=== PATIENT | male | born 1980 | race Caucasian/White ===

== ENCOUNTER 2019-12-22 18:10 | Emergency (ER) | payer SELFPAY ==
[2019-12-22 18:10] VITALS: BP 129/94; PULSE 91; RESP 17; TEMP 37.3; O2SAT 100
[2019-12-22 18:30] VITALS: BP 125/85; PULSE 90; RESP 18; O2SAT 94
--- NOTE | 2019-12-22 18:35 | PC.NURSE ---
Note pt pulse oximetry dropped to 85% with good pleth on room air. In to evaluate patient, states he doesn't feel any different and is continues to feel better. sp02 increases to 94% with deep breathing. Pt placed on o2/2L/nc precautionary.
[2019-12-22 19:00] VITALS: BP 121/91; PULSE 94; RESP 16; O2SAT 99
--- NOTE | 2019-12-22 19:03 | ED.ALLEREA ---
HPI - Allergic Reaction General Chief complaint: Allergic Reaction Stated complaint: ALLERGIC REACTION Time Seen by Provider: 12/22/19 18:49 Source: patient Mode of arrival: EMS Limitations: no limitations History of Present Illness HPI narrative: This is a 39-year-old male that presents to the emergency department for allergic reaction just prior to arrival. Reports he was mowing the lawn and sustained an insect sting to the right calf. Reports shortly after he noted diffuse itching. Reports he tried to take a shower but started to feel lightheaded and some chest tightening. Reports swelling of the eyes and lips. Reports a diffuse rash. They called EMS who gave him a steroid and epinephrine and he was brought to the emergency department. Reports feeling much better now. Reports history of localized reaction to insect stings, but no history of anaphylactic reactions. Related Data Allergies Allergy/AdvReac Type Severity Reaction Status Date / Time No Known Allergies Allergy Verified 12/22/19 18:38 Review of Systems Review of Systems: Narrative: CONSTITUTIONAL: Denies fever CARDIOVASCULAR: Reports chest tightness RESPIRATORY: Reports shortness of breath GASTROINTESTINAL: Denies abdominal pain, nausea, vomiting SKIN: Reports rash and itching. All systems reviewed & are unremarkable except as noted in HPI and below PMFSH Past Medical History Medical History (Updated 12/22/19 @ 20:53 by Sol Garcia PA-C) No active medical problems Social History Social History (Updated 12/22/19 @ 19:11 by Sol Garcia PA-C) Smoking status: Never smoker Gender identity (if verbalized by the patient): Male Exam Narrative: Exam Narrative: GENERAL: Well-appearing, well-nourished, and in no acute distress. HEAD: Normocephalic, atraumatic. EYES: EOMI. Mild eyelid swelling bilaterally ENT: Mucous membranes moist. Oropharynx without tonsillar hypertrophy exudate or other lesions. No tongue or throat swelling. Mild swelling of the lips NECK: Supple. No adenopathy or masses. No carotid bruits or JVD CHEST: Clear to auscultation. No respiratory distress. No wheezes rales or rhonchi HEART: Regular rate and rhythm. No murmur heard. Normal peripheral pulses. EXTREMITIES: Normal range of motion. No edema. SKIN: Warm, dry. Diffuse papular rash NEURO: No focal deficits. Alert and oriented x3. PSYCH: Normal mood and affect Course Consultations Consultation #1: Spoke with patient's primary about work-up who will follow-up with patient. Date: 12/22/19 Time: 20:52 Vital Signs Vital signs: Vital Signs Temperature 99.1 F 12/22/19 18:10 Pulse Rate 91 12/22/19 18:10 Respiratory Rate 17 12/22/19 18:10 Blood Pressure 129/94 H 12/22/19 18:10 Pulse Oximetry 100 12/22/19 18:10 Temperature 99.1 F 12/22/19 18:10 Pulse Rate 87 12/22/19 20:36 Respiratory Rate 16 12/22/19 20:36 Blood Pressure 124/80 12/22/19 20:36 Pulse Oximetry 96 12/22/19 20:36 MDM - Allergic Reaction MDM Narrative Medical decision making narrative: Patient presents to the emergency department for allergic reaction to bee sting. Reported diffuse itching and rash. Also had facial swelling and chest tightness. EMS administered epi, Solu-Medrol and albuterol treatment in route. Patient had taken Benadryl at home. He was given Pepcid here in the ED as well. After patient came off albuterol treatment oxygen saturation was in the high 80s and low 90s so he had to be placed on 2 L nasal cannula. Was easily weaned off of this. Patient has maintained normal oxygen saturation on room air. Has been in the ED for 3 hours with continued improvement in his symptoms. Rash is nearly gone and facial swelling is nearly resolved as well. Spoke with patient's primary about work-up who will follow-up with patient. Patient is stable and felt appropriate further outpatient evaluation. He will be given prescription for EpiPen and a couple more days of st
--- NOTE | 2019-12-22 19:20 | PC.NURSE ---
Report to RASHID Figueredo, to continue care.
[2019-12-22] MEDS: FAMOTIDINE 20 MG/2 ML VIAL IV PUSH (19:25)
[2019-12-22 19:26] VITALS: BP 126/88; PULSE 86; RESP 13; O2SAT 94
[2019-12-22 20:36] VITALS: BP 124/80; PULSE 87; RESP 16; O2SAT 96
== END 2019-12-22 21:26 | disposition home or self-care (01) ==
PROVIDERS: Emergency Provider Emergency Medicine
DX: T63.441A Toxic effect of venom of bees, accidental (unintentional), initial encounter (principal)
CPT/HCPCS: 96374; 99284